=== PATIENT | female | born 1975 | race Asian ===

== ENCOUNTER 2023-04-06 18:04 | Emergency (ER) | payer OTHER, SELFPAY ==
[2023-04-06 18:14] VITALS: BP 162/96; PULSE 85; RESP 18; TEMP 36.3; O2SAT 99; BMI 27.6
--- NOTE | 2023-04-06 18:26 | CRLHL7_ITS ---
For Patients: As a result of the Century Cures Act, medical imaging exams and procedure reports are released immediately into your electronic medical record. You may view this report before your referring provider. If you have questions, please contact your health care provider. INDICATION: Right lower quadrant pain. TECHNIQUE: CT abdomen and pelvis acquired with 74 cc Isovue 370 IV contrast. COMPARISON: None. FINDINGS: Lower chest: Unremarkable. Liver: Unremarkable. Normal in size and attenuation. No suspicious masses. Gallbladder and bile ducts: Unremarkable. No stones or inflammation. No biliary dilatation. Pancreas: Unremarkable. No mass or inflammation. Spleen: Unremarkable. Normal in size. No masses. Adrenal glands: Unremarkable. No nodules. Kidneys: Unremarkable. No suspicious masses, stones, or hydronephrosis. GI tract: Mild rectal wall hyperemia. No bowel obstruction. Normal appendix. Vasculature: Abdominal aorta is normal in caliber. Mesenteric arteries are patent. Lymph nodes: Few mildly enlarged ileocolic lymph nodes Peritoneum/Abdominal Wall: Tiny fat containing umbilical hernia. No sign of mass or infiltration. No free air or significant free fluid. Pelvis: Unremarkable. Bones: Unremarkable for age. IMPRESSION: Mild rectal wall hyperemia, possibly low-grade proctitis. Few mildly enlarged ileocolic lymph nodes, likely reactive, possibly mesenteric adenitis. Otherwise, no acute intra-abdominal/pelvic abnormality including appendicitis as questioned. Please note that all CT scans at this facility use dose modulation, iterative reconstruction, and/or weight-based dosing when appropriate to reduce radiation dose to as low as reasonably achievable. Dictated by Raciel Renee MD @ 04/06/2023 8:06:04 PM (Electronically Signed)
--- NOTE | 2023-04-06 18:30 | ED_ITS ---
HPI - Abdominal Pain General Chief Complaint: Abdominal Pain Stated Complaint: abdominal pain right side Time Seen by Provider: 04/06/23 18:13 History of Present Illness HPI narrative: This 47-year-old female comes in from urgent care because of right lower quadrant abdominal pain. She states that the pain is been present for the past couple days and seemed worse today. She states that it is a constant pain. She does not report any nausea, vomiting, loss of appetite, diarrhea, fever. Related Data Home Medications Medication Instructions Recorded Confirmed No Known Home Medications 04/06/23 04/06/23 Allergies Allergy/AdvReac Type Severity Reaction Status Date / Time No Known Drug Allergies Allergy Verified 04/06/23 19:18 Review of Systems Status of ROS Reports: 10 or more systems reviewed and unremarkable except as noted in History and below Narrative Constitutional: No fevers, no weight gain or loss. Eyes: No discharge. No vision changes. HENT: No congestion, no sore throat, no ear pain. Cardiovascular: No chest pain, no palpitations. Respiratory: No shortness of breath, no wheezes, no cough. Gastrointestinal: No vomiting, no diarrhea. Right lower quadrant abdominal pain. Genitourinary: No dysuria, no hematuria. Musculoskeletal: Normal range of motion. Skin: No rashes, no pruritis. Neurological: No dizziness, weakness, sensory change, speech change. Endo/Heme/Allergies: No bruising or bleeding. No polydipsia. Pysch: no suicidality, no anxiety, no insomnia. All other systems reviewed and are negative. Exam Narrative: Exam Narrative: Constitutional: Well-developed, well-nourished, no acute distress. HEENT: Normocephalic, atraumatic. Neck: Normal range of motion. Nontender. Supple. Heart: Regular. No murmurs. Normal rate. Intact distal pulses. Lungs: Clear to auscultation. No chest discomfort. No wheezes, rhonchi, or rales. Abdomen: Normal bowel sounds. Tenderness in the right lower quadrant. No rebound tenderness. Genitalia: Deferred. Back: No midline tenderness. Normal range of motion. Extremities: Normal range of motion. No injury. Skin: Intact. No rash. Warm. No erythema or pallor. Neurologic: No altered sensation. No weakness. Alert and oriented. Psychiatric: No suicidality. No anxiety or depression. No insomnia. Nursing notes and vitals signs are reviewed. Const: Vital Signs, click to edit/add: Vital Signs - 24 hr 04/06/23 18:14 04/06/23 19:29 04/06/23 19:45 Temperature 97.4 F L Pulse Rate [Right Pulse Oximeter] 85 72 Respiratory Rate 18 20 Blood Pressure [Ri ght Upper Arm] 162/96 H 160/97 H Pulse Oximetry 99 99 Oxygen Delivery Me thod Room Air Room Air Course Vital Signs Vital signs: Initial Vital Signs Temperature 97.4 F L 04/06/23 18:14 Temperature Source Temporal Artery Scan 04/06/23 18:14 Pulse Rate 85 04/06/23 18:14 Respiratory Rate 18 04/06/23 18:14 Blood Pressure 162/96 H 04/06/23 18:14 Blood Pressure Mean 118 H 04/06/23 18:14 Blood Pressure Position Sitting 04/06/23 18:14 Pulse Oximetry 99 04/06/23 18:14 Oxygen Delivery Method Room Air 04/06/23 18:14 Vital Signs Temperature 97.4 F L 04/06/23 18:14 Pulse Rate 85 04/06/23 18:14 Respiratory Rate 18 04/06/23 18:14 Blood Pressure 162/96 H 04/06/23 18:14 Pulse Oximetry 99 04/06/23 18:14 Oxygen Delivery Method Room Air 04/06/23 18:14 Temperature 97.4 F L 04/06/23 18:14 Pulse Rate 72 04/06/23 19:29 Respiratory Rate 20 04/06/23 19:29 Blood Pressure 160/97 H 04/06/23 19:45 Pulse Oximetry 99 04/06/23 19:29 Oxygen Delivery Method Room Air 04/06/23 19:29 MDM - Abdominal Pain MDM Narrative Medical decision making narrative: This patient comes in with right lower quadrant abdominal pain over the past couple days. She does not have any abnormal vital signs and has no vomiting or diarrhea. I did not detect any sign of rebound tenderness or Rovsing sign on exam. She did have an IV placed and the CT scan obtained. Labs and imaging results returned with reassuring findings. Her CT scan may suggest some evidence of mesenteric adenitis. The patient is okay to return home. I advised her to follow[facility]up with [facility] or primary physician as needed. She did receive a prescription for Toradol. Lab Data Labs: Lab Results 04/06/23 Range/Units 18:40 WBC 12.09 H (4.50-11.00) K/uL RBC 5.11 (4.00-5.20) m/uL Hgb 14.7 (12.0-16.0) gm/dL Hct 44.8 (33.0-51.0) % MCV 88 (80-100) fL MCH 29 (26-34) pg MCHC 33 (32-36) gm/dL RDW Coeff of [place] 14.0 (11.5-15.5) % Plt Count 326 (140-440) K/uL Neut % (Auto) 61.5 (42.0-72.0) % Lymph % (Auto) 27.0 (20-44) % [place] % (Auto) 5.5 (0.0-11.0) % Eos % (Auto) 5.1 (0.0-7.0) % Baso % (Auto) 0.7 (0.0-3.0) % Neut # (Auto) 7.40 H (1.7-7.0) K/uL Lymph # (Auto) 3.30 H (0.90-2.90) K/uL [place] # (Auto) 0.70 (0.00-0.90) K/UL Eos # (Auto) 0.60 H (0.00-0.50) K/uL Baso # (Auto) 0.10 (0.00-0.30) K/uL Abs Immat Gran (auto) 0.00 (0.00-0.30) K/uL Imm/Tot Granulo (auto) 0.2 % Sodium 140 (135-149) mmol/L Potassium 4.0 (3.6-5.1) mmol/L Chloride 102 (96-114) mmol/L Carbon Dioxide 23 (20-32) mmol/L Anion Gap 15 (7-15) mEq/L BUN 10 (5-24) mg/dL Creatinine 0.6 (0.5-1.5) mg/dL Estimated Creat Clear 89.70 Estimated GFR 110 ml/min Glucose 85 (60-115) mg/dL Calcium 9.2 (8.4-10.6) mg/dL Imaging Data CT scan - abdomen: Radiologist's impression: Mild rectal wall hyperemia, possibly low-grade proctitis. Few mildly enlarged ileocolic lymph nodes, likely reactive, possibly mesenteric adenitis. Otherwise, no acute intra-abdominal/pelvic abnormality including appendicitis as questioned. Discharge Plan Discharge Clinical Impression: Mesenteric adenitis, Abdominal pain Patient Disposition: Home w/ Parent or Adult Condition: Stable Additional Instructions: Take medication as needed and indicated. [facility] or primary physician. Return if worsening. Prescriptions: No Action No Known Home Medications Follow Up/Referrals: Provider,Not a Local [Primary Care Provider] - Stand Alone Forms: [employer] Info Instructions
[2023-04-06 19:09] LABS: Basophils Percent Auto 0.7 % (0.0-3.0); Eosinophils Percent Auto 5.1 % (0.0-7.0); Hematocrit 44.8 % (33.0-51.0); Hemoglobin* 14.7 gm/dL (12.0-16.0); Immature Granulocytes Pct Auto 0.2 %; Mean Corpuscular HGB Conc 33 gm/dL (32-36); Mean Corpuscular Hemoglobin 29 pg (26-34); Mean Corpuscular Volume 88 fL (80-100); Monocytes Percent Auto 5.5 % (0.0-11.0); Neutrophils Percent Auto 61.5 % (42.0-72.0); Platelet Count* 326 K/uL (140-440); Red Blood Count 5.11 m/uL (4.00-5.20); White Blood Count* 12.09 K/uL (4.50-11.00)
[2023-04-06 19:18] LABS: Slide Review Reflex No
[2023-04-06 19:21] LABS: Chloride* 102 mmol/L (96-114); Sodium* 140 mmol/L (135-149)
[2023-04-06 19:24] LABS: Anion Gap 15 mEq/L (7-15); Blood Urea Nitrogen* 10 mg/dL (5-24); Calcium* 9.2 mg/dL (8.4-10.6); Carbon Dioxide* 23 mmol/L (20-32); Creatinine* 0.6 mg/dL (0.5-1.5); Estimated Glomerular Filt Rate 110 ml/min; Glucose* 85 mg/dL (60-115)
[2023-04-06 19:29] VITALS: PULSE 72; RESP 20; O2SAT 99
[2023-04-06 19:45] VITALS: BP 160/97
--- NOTE | 2023-04-06 19:54 | ED.NURSE ---
Received from [facility].
[2023-04-06 20:33] VITALS: BP 160/97; PULSE 72; RESP 20; TEMP 36.3
== END 2023-04-06 20:30 | disposition home or self-care (01) ==
PROVIDERS: Emergency Provider Emergency Medicine Emergency Medical Services
DX: I88.0 Nonspecific mesenteric lymphadenitis (principal)
CPT/HCPCS: 36415; 74177; 80048; 85025; 99284; Q9967